=== PATIENT | female | born 1930 | race Caucasian/White ===

== ENCOUNTER 2018-11-22 13:07 | Inpatient (IN) | payer MEDICARE, OTHER ==
[~2018-11-22] VITALS: Ht 139.7 cm; Wt 38.6 kg
--- NOTE | 2018-11-22 13:30 | NUR ---
patient presented to the ER c/o fever, nausea and vomiting. Connected to the monitor and pulse ox. No facial grimace noted. kept comfortable, will continue to monitor accordingly.
[2018-11-22 13:43] LABS: BASOPHILS % (AUTO) 0.2 % (0.0-2.0); EOSINOPHILS % (AUTO) 0.1 % (0.0-6.0); HEMATOCRIT 30 % (33-45); HEMOGLOBIN 9.6 g/dL (11.5-14.8); LYMPHOCYTES # (AUTO) 0.8 /CMM (0.8-4.8); LYMPHOCYTES % (AUTO) 4.9 % (20.0-44.0); MEAN CORPUSCULAR HGB CONC 32 g/dl (31.0-36.0); MEAN CORPUSCULAR VOLUME 89 fL (82-100); MONOCYTES # (AUTO) 1.5 /CMM (0.1-1.30); MONOCYTES % (AUTO) 9.3 % (2.0-12.0); NEUTROPHILS # (AUTO) 13.9 /CMM (1.8-8.9); NEUTROPHILS % (AUTO) 85.5 % (43.0-81.0); PLATELET COUNT (AUTO) 272 /CMM (150-450); RED BLOOD CELL COUNT(AUTO) 3.37 MIL/uL (4.0-5.2); WHITE BLOOD COUNT (AUTO) 16.2 K/uL (4.3-11.0)
[2018-11-22 13:49] LABS: CALCIUM, SERUM 8.2 mg/dL (8.5-10.1); CARBON DIOXIDE 20 mmol/L (21-32); CHLORIDE 106 mmol/L (98-107); CREATININE 1.4 mg/dL (0.6-1.3); GLUCOSE 107 mg/dL (74-106); POTASSIUM 3.6 mmol/L (3.5-5.1); SODIUM SERUM 138 mmol/L (136-145); UREA NITROGEN, BLOOD 43 mg/dL (7-18)
[2018-11-22 13:56] LABS: ALANINE AMINOTRANSFERASE 12 U/L (12-78); ALBUMIN 2.1 g/dL (3.4-5.0); ALKALINE PHOSPHATASE 142 U/L (46-116); ASPARTATE AMINOTRANSFERASE 17 U/L (15-37); BILIRUBIN,DIRECT 0.1 mg/dL (0.0-0.2); BILIRUBIN,TOTAL 0.3 mg/dL (0.2-1.0); TOTAL PROTEIN, SERUM 6.4 g/dL (6.4-8.2)
[2018-11-22 14:09] LABS: APPEARANCE,URINE Cloudy (CLEAR); BILIRUBIN,URINE Negative (NEGATIVE); BLOOD, URINE Small Ery/uL (NEGATIVE); COLOR,URINE Yellow (YELLOW); KETONES,URINE Negative (NEGATIVE); LEUKOCYTE ESTERASE ,URINE Large (NEGATIVE); NITRITE, URINE Negative (NEGATIVE); PROTEIN,URINE 30 mg/dl (NEGATIVE); UGLUCOSE Negative (NEGATIVE); UROBILINOGEN,URINE 0.2 EU/dL (0.2)
[2018-11-22 14:23] LABS: SQUAMOUS EPITHELIAL CELL,UR Rare /HPF (None Seen); WBC,URINE TOO NUMEROUS TO COUN /HPF (0-3)
[2018-11-22 14:24] LABS: BACTERIA,URINE Few /HPF (None Seen)
[2018-11-22] MEDS ORDERED: ONDANSETRON HCL/PF 4 MG/2 ML VIAL IVP ONE (14:30)
[2018-11-22] MEDS ORDERED: IV NS 0.9% 1,000 ML BAG IV ONE (14:30)
[2018-11-22] MEDS ORDERED: PIPERACILLIN /TAZOBACTAM 3.375 G in IV D5W 50 ML IV ONE (14:30)
[2018-11-22] MEDS ORDERED: MINERAL OIL 133 ML (PYXIS) 1 EA ENEMA RC ONE (14:30)
[2018-11-22] MEDS ORDERED: IV NS 0.9% 500 ML BAG IV ONE (14:30)
[2018-11-22] MEDS ORDERED: ONDANSETRON HCL/PF 4 MG/2 ML VIAL ONE (14:34)
[2018-11-22] MEDS ORDERED: NA PHOS,M-B/NA PHOS,DI-BA 1 EA ENEMA RC ONE (14:34)
[2018-11-22] MEDS ORDERED: PANT40TA4 PO (15:19)
[2018-11-22] MEDS ORDERED: ONDA4TAB10 PO (15:19)
[2018-11-22] MEDS ORDERED: PRAM1.5T25 PO (15:22)
[2018-11-22] MEDS ORDERED: AMLO5TAB9 PO (15:22)
[2018-11-22] MEDS ORDERED: IV D5/0.45 NACL 1,000 ML IV PRN (17:02)
[2018-11-22] MEDS ORDERED: ONDANSETRON HCL/PF 4 MG/2 ML VIAL IVP PRN (17:30)
[2018-11-22] MEDS ORDERED: MAG HYDROX/AL HYDROX/SIMETH 30 ML UDC PO PRN (17:30)
[2018-11-22] MEDS ORDERED: HYDROCODONE/APAP 5/325MG 1 EACH TABLET PO PRN (17:30)
[2018-11-22] MEDS ORDERED: Z GUARD REMEDY 2 OZ OINT TP PRN (17:30)
[2018-11-22] MEDS ORDERED: ZOLPIDEM TARTRATE 5 MG TABLET PO PRN (17:30)
[2018-11-22] MEDS ORDERED: MAGNESIUM HYDROXIDE 30 ML UDC PO PRN (17:30)
--- NOTE | 2018-11-22 17:33 | NUR ---
report given to Christa ARMENTA for ok.
--- NOTE | 2018-11-22 17:51 | NUR ---
patient wheeled via gurney in no apparent distress noted.
[2018-11-22 18:00] VITALS: BP 99/51
[2018-11-22 19:03] VITALS: BP 93/51
--- NOTE | 2018-11-22 19:45 | NUR ---
MS/RN OPENING NOTES PT RECEIVED IN BED. ON ROOM AIR, BREATHING EVEN AND UNLABORED. IN NO ACUTE DISTRESS, NO SOB NOTED. PITCAIRN ISLANDER/HAITIAN SPEAKING. IV TO LAC PATENT AND INTACT. HENDRICKS IN PLACE AND DRAINING TO GRAVITY. BED IN LOW/LOCKED POSITION WITH CALL LIGHT IN REACH. SIDE RAILS UPX3 AND BED ALARM ON FOR SAFETY. WILL CONTINUE TO MONITOR
[2018-11-22 20:50] VITALS: BP 115/56
[2018-11-22] MEDS: CEFTRIAXONE 1 G in IV D5W 50 ML IV SCH (21:21)
[2018-11-22] MEDS: POLYETHYLENE GLYCOL 3350 17 GM POWD.PACK PO SCH (21:21)
[2018-11-22] MEDS: PRAMIPEXOLE DI-HCL 0.25 MG TABLET PO SCH (21:21)
[2018-11-22] MEDS: SENNOSIDES 8.6 MG TABLET PO SCH (21:21)
[2018-11-22] MEDS: DOCUSATE SODIUM 250 MG CAPSULE PO SCH (21:21)
[2018-11-22] MEDS: LACTULOSE 10 G/15 ML UDC (PYXIS) PO SCH (22:31)
--- NOTE | 2018-11-22 23:00 | NUR ---
MS/RN NOTES ALL DUE MEDS ADMINISTERED. PT APPEARS COMFORTABLE AT THIS TIME. WILL CONTINUE TO MONITOR
--- NOTE | 2018-11-23 02:25 | NUR ---
MS/RN NOTES PT ROUNDING PERFORMED. PT ASLEEP, IN NO ACUTE DISTRESS. BREATHING EVEN AND UNLABORED. WITH MONITOR
--- NOTE | 2018-11-23 03:24 | NUR ---
MS/RN NOTES PT RESTLESS, GETTING OUT OF BED TO USE BSC. IV PULLED OUT. PT STILL WITH NO BM YET. INSERTED NEW IV TO LFA #22 WITH GOOD BLOOD RETURN. ASSISTED PT BACK TO BED. BED IN LOW/LOCKED POSITION WITH CALL LIGHT IN REACH. SIDE RAILS UPX3 AND BED ALARM TURNED BACK ON FOR SAFETY.
[2018-11-23] MEDS: LACTULOSE 10 G/15 ML UDC (PYXIS) PO SCH ×4 (05:18→22:36)
--- NOTE | 2018-11-23 07:13 | NUR ---
MS/RN CLOSING NOTES PT RESTING COMFORTABLY IN BED. ON ROOM AIR, BREATHING EVEN AND UNLABORED. NO S/S OF SOB OR PAIN NOTED AT THIS TIME. IN NO ACUTE DISTRESS. HENDRICKS IN PLACE AND DRAINING TO GRAVITY. KEPT PT COMFORTABLE POSSIBLE. PT HAD MULTIPLE ATTEMPTS TO TRY TO HAVE A BM WITH NO SUCCESS. IV TO LFA PATENT AND INTACT RUNNING IVF ORDERED. ALL NEEDS MET. BED IN LOW/LOCKED POSITION WITH CALL LIGHT IN REACH. BILATERAL UPPER SIDE RAILS IN PLACE AND BED ALARM ON FOR SAFETY. WILL ENDORSE TO DAY SHIFT RN VANESA.
--- NOTE | 2018-11-23 07:25 | NUR ---
MS RN OPENING NOTE RECEIVED PATIENT IN BED. SLEEPING, EASILY AROUSED WITH VERBAL STIMULI. ORIENTED X3. ON ROOM AIR, TOLERATING WELL. IN NO APPARENT DISTRESS AT THIS TIME. RESPIRATIONS EVEN AND UNLABORED. PATIENT REPORTS MODERATE DISCOMFORT IN HER RECTAL AREA DUE TO HER CONDITION. UNABLE TO REDUCE DISCOMFORT AT THIS TIME PER MD'S INSTRUCTIONS. PATIENT IS ABLE TO COMMUNICATE NEEDS. USES DIAPER FOR ELIMINATION. ABDOMEN IS DISTENDED AND TENDER. NO BM FOR 6 DAYS. WILL CONTINUE TO MONITOR. LEFT FA 22G IVC WITH FLUIDS RUNNING AT 75ML/HR, PATENT INTACT. PATIENT KEPT CLEAN AND COMFORTABLE. ALL NEEDS ATTENDED, SAFETY MEASURES IN PLACE, BED IN LOW LOCKED POSITION, SIDE RAILS UP X3, BED ALARM ON, CALL LIGHT WITHIN EASY REACH. WILL CONTINUE TO MONITOR.
[2018-11-23 07:30] LABS: BASOPHILS % (AUTO) 0.2 % (0.0-2.0); EOSINOPHILS % (AUTO) 0.1 % (0.0-6.0); HEMATOCRIT 28 % (33-45); HEMOGLOBIN 9.3 g/dL (11.5-14.8); LYMPHOCYTES # (AUTO) 1.1 /CMM (0.8-4.8); LYMPHOCYTES % (AUTO) 8.3 % (20.0-44.0); MEAN CORPUSCULAR HGB CONC 33 g/dl (31.0-36.0); MEAN CORPUSCULAR VOLUME 89 fL (82-100); MONOCYTES # (AUTO) 1.6 /CMM (0.1-1.30); MONOCYTES % (AUTO) 12.4 % (2.0-12.0); NEUTROPHILS # (AUTO) 10.5 /CMM (1.8-8.9); PLATELET COUNT (AUTO) 290 /CMM (150-450); RED BLOOD CELL COUNT(AUTO) 3.19 MIL/uL (4.0-5.2); WHITE BLOOD COUNT (AUTO) 13.3 K/uL (4.3-11.0)
[2018-11-23 07:50] LABS: CALCIUM, SERUM 8.2 mg/dL (8.5-10.1); CARBON DIOXIDE 20 mmol/L (21-32); CHLORIDE 114 mmol/L (98-107); CREATININE 1.2 mg/dL (0.6-1.3); GLUCOSE 102 mg/dL (74-106); MAGNESIUM 1.9 mg/dL (1.8-2.4); PHOSPHORUS 4.1 mg/dL (2.5-4.9); POTASSIUM 3.2 mmol/L (3.5-5.1); SODIUM SERUM 146 mmol/L (136-145); UREA NITROGEN, BLOOD 33 mg/dL (7-18)
[2018-11-23 07:55] LABS: CHOLESTEROL 97 mg/dL (<200); HDL CHOLESTEROL 11 mg/dL (40-60); LDL 48 mg/dL (0-99); TRIGLYCERIDES 148 mg/dL (30-150)
--- NOTE | 2018-11-23 07:56 | NUR ---
WOUND CARE CONSULT WOUND CARE RECEIVED CONSULT FOR RECTAL PROLAPSE. WOUND CARE WILL DEFER CONSULT TO MD/SURGICAL TEAMS AT THIS TIME. WILL SEE PRN.
[2018-11-23 08:00] VITALS: BP 137/64
[2018-11-23] MEDS: DOCUSATE SODIUM 250 MG CAPSULE PO SCH ×2 (08:31→17:22)
[2018-11-23] MEDS: AMLODIPINE BESYLATE 5 MG TABLET PO SCH (08:32)
[2018-11-23] MEDS: PANTOPRAZOLE 40 MG TABLET.DR PO SCH (08:32)
[2018-11-23] MEDS: PRAMIPEXOLE DI-HCL 0.25 MG TABLET PO SCH ×3 (08:32→17:22)
--- NOTE | 2018-11-23 11:00 | NUR ---
PATIENT PRESENTS WITH NON-PRODUCTIVE COUGH. LUNG SOUND ARE CLEAR. ALSO REPORTS PAIN AND DISCOMFORT IN THE RECTAL AREA. REPORTED TO DR. LANE. ORDERS RECEIVED FOR TREATMENT OF PATIENT'S CURRENT SYMPTOMS. WILL CARRY OUT AND CONTINUE TO MONITOR.
[2018-11-23] MEDS ORDERED: POTASSIUM CHLORIDE 20 MEQ TAB.PRT.SR PO SCH (11:30)
[2018-11-23] MEDS ORDERED: Potassium Chloride 40 MEQ in IV D5W 1,000 ML IV PRN (12:00)
[2018-11-23] MEDS ORDERED: ALBUTEROL FS 2.5 MG/3 ML VIAL.NEB NEB PRN (12:00)
[2018-11-23] MEDS: POTASSIUM CHLORIDE 20 MEQ POWDER PACKET PO SCH ×2 (12:07→14:11)
[2018-11-23] MEDS: LIDOCAINE 5% (PATCH) 1 EA PATCH TP SCH (12:07)
[2018-11-23] MEDS: GUAIFENESIN/D-METHORPHAN HB 5 ML UDC PO PRN (12:07)
[2018-11-23] MEDS: ACETAMINOPHEN 325 MG TABLET PO PRN ×2 (12:07→19:34)
[2018-11-23 16:00] VITALS: BP 137/64
--- NOTE | 2018-11-23 18:19 | NUR ---
MS RN CLOSING NOTE PATIENT IN BED. SLEEPING, EASILY AROUSED WITH VERBAL STIMULI. ORIENTED X3. ON ROOM AIR, TOLERATING WELL. IN NO APPARENT DISTRESS AT THIS TIME. RESPIRATIONS EVEN AND UNLABORED. DENIES PAIN AND SOB. PATIENT IS ABLE TO COMMUNICATE NEEDS. USES DIAPER FOR ELIMINATION. PATIENT HAD 3 BMS DURING THE SHIFT. LEFT FA 22G IVC WITH FLUIDS RUNNING AT 75ML/HR, PATENT INTACT. PATIENT KEPT CLEAN AND COMFORTABLE. ALL NEEDS ATTENDED, ORDERS RENDERED. SAFETY MEASURES IN PLACE, BED IN LOW LOCKED POSITION, SIDE RAILS UP X3, BED ALARM ON, CALL LIGHT WITHIN EASY REACH. WILL ENDORSE TO PM NURSE FOR VANESA.
--- NOTE | 2018-11-23 19:40 | NUR ---
RN MS OPENING NOTES RECEIVED PT IN BED, AWAKE ALERT ORIENTED X3 TUNISIAN SPEAKING, FAMILY AT BESIDE. BREATHING EVEN AND UNLABORED ON ROOM AIR, NO COUGHING AT THE MOMENT, COMPLAINING OF PAIN 10/10 LOWER BACK, WILL ADMINISTER TYLENOL PRESCRIBED. IV ACCESS ON THE L FA G 22 WITH D5 NS WITH POTASSIUM. BED IN LOWEST LOCKED POSITION, CALL LIGHT WITHIN REACH AT ALL TIMES, WILL CONTINUE TO MONITOR.
[2018-11-23] MEDS: CEFTRIAXONE 1 G in IV D5W 50 ML IV SCH (19:44)
[2018-11-23 20:00] VITALS: BP 169/79
[2018-11-23] MEDS: POLYETHYLENE GLYCOL 3350 17 GM POWD.PACK PO SCH (22:19)
[2018-11-23] MEDS: SENNOSIDES 8.6 MG TABLET PO SCH (22:20)
[2018-11-24] MEDS: LACTULOSE 10 G/15 ML UDC (PYXIS) PO SCH ×2 (04:19→09:45)
--- NOTE | 2018-11-24 06:24 | NUR ---
RN MS CLOSING NOTES PT REMAINS IN BED, AWAKE ALERT ORIENTED X3 [place] SPEAKING. BREATHING EVEN AND UNLABORED ON ROOM AIR, NO COUGHING AT THE MOMENT, IN NO APPARENT PAIN OR DISCOMFORT AT THIS TIME. IV ACCESS ON THE L FA G 22 WITH D5 NS WITH POTASSIUM. BED IN LOWEST LOCKED POSITION, CALL LIGHT WITHIN REACH AT ALL TIMES, WILL ENDORSE TO DAY NURSE FOR VANESA
[2018-11-24 06:55] LABS: BASOPHILS % (AUTO) 0.4 % (0.0-2.0); EOSINOPHILS % (AUTO) 0.6 % (0.0-6.0); HEMATOCRIT 30 % (33-45); HEMOGLOBIN 9.6 g/dL (11.5-14.8); LYMPHOCYTES # (AUTO) 1.3 /CMM (0.8-4.8); LYMPHOCYTES % (AUTO) 12.9 % (20.0-44.0); MEAN CORPUSCULAR HGB CONC 32 g/dl (31.0-36.0); MEAN CORPUSCULAR VOLUME 90 fL (82-100); MONOCYTES # (AUTO) 1.2 /CMM (0.1-1.30); MONOCYTES % (AUTO) 12.1 % (2.0-12.0); NEUTROPHILS # (AUTO) 7.2 /CMM (1.8-8.9); PLATELET COUNT (AUTO) 313 /CMM (150-450); RED BLOOD CELL COUNT(AUTO) 3.29 MIL/uL (4.0-5.2); WHITE BLOOD COUNT (AUTO) 9.7 K/uL (4.3-11.0)
--- NOTE | 2018-11-24 07:15 | NUR ---
OPENING NOTE RN AM BEDSIDE REPORT RECIEVED FROM PM RN. PATIENT SEEN IN BED WITH IV INFUSING , NO S/S OF COMPLICATIONS AT IV SITE. PATIENT RESTING IN BED LOW POSITION LOCKED, CALL LIGHT IN REACH. HUNGARIAN SPEAKING, PATIENT DOES NOT APPEAR TO BE IN ANY DISTRESS.
[2018-11-24 07:37] LABS: CALCIUM, SERUM 8.2 mg/dL (8.5-10.1); CARBON DIOXIDE 16 mmol/L (21-32); CHLORIDE 112 mmol/L (98-107); GLUCOSE 92 mg/dL (74-106); MAGNESIUM 1.8 mg/dL (1.8-2.4); POTASSIUM 3.6 mmol/L (3.5-5.1); SODIUM SERUM 142 mmol/L (136-145); UREA NITROGEN, BLOOD 18 mg/dL (7-18)
[2018-11-24 08:43] VITALS: BP 139/73
[2018-11-24] MEDS: PANTOPRAZOLE 40 MG TABLET.DR PO SCH (09:43)
[2018-11-24] MEDS: DOCUSATE SODIUM 250 MG CAPSULE PO SCH ×2 (09:43→18:03)
[2018-11-24] MEDS: PRAMIPEXOLE DI-HCL 0.25 MG TABLET PO SCH ×3 (09:43→18:03)
[2018-11-24] MEDS: AMLODIPINE BESYLATE 5 MG TABLET PO SCH (09:45)
[2018-11-24] MEDS: GUAIFENESIN/D-METHORPHAN HB 5 ML UDC PO PRN (09:58)
[2018-11-24] MEDS ORDERED: Magnesium 1GM/D5W 100ML PREMIX 100 ML IV SCH (11:00)
[2018-11-24] MEDS: LIDOCAINE 5% (PATCH) 1 EA PATCH TP SCH (11:21)
[2018-11-24 16:14] VITALS: BP 113/58
[2018-11-24] MEDS: ENSURE ENLIVE 237 ML LIQUID (VANILLA) PO SCH (18:22)
--- NOTE | 2018-11-24 18:47 | NUR ---
CLOSING NOTE RN DAY PATIENT SEEN IN BED WITH IV HEPLOCKED , NO S/S OF COMPLICATIONS AT IV SITE. PATIENT RESTING IN BED LOW POSITION LOCKED, CALL LIGHT IN REACH. LEBANESE SPEAKING, PATIENT DOES NOT APPEAR TO BE IN ANY DISTRESS. FINISHED EATING OVER HALF OF HER DINNER. ENCOURAGED TO DRINK HER ENSURE. BT PATIENT SHAKES HER HEAD, WITH LITTLE INTEREST. LEFT ACCESSIBLE TO HER ALONG WITH HER WATER. CALL LIGTH IN REACH BED DOWN LOCKED SRX3.
--- NOTE | 2018-11-24 19:20 | NUR ---
RN OPEN NOTES RECEIVED PATIENT AWAKE IN BED WITH FAMILY AT BEDSIDE. A/O X3, BULGARIAN/BRAZILIAN SPEAKING. NO SIGNS OF DISTRESS OR DISCOMFORT BREATHING EVEN AND UNLABORED. IV ACCESS IN RFA INTACT NO SIGNS OF REDNESS OR INFILTRATION. HAS F/C INTACT WITH CLEAR YELLOW FLUID DRAINING. BED IN LOW LOCKED POSITION WITH SIDE RAILS X3. BED ALARM ON. CALL LIGHT WITHIN REACH. WILL CONTINUE TO MONITOR.
[2018-11-24 20:00] VITALS: BP 147/72
[2018-11-24] MEDS: CEFTRIAXONE 1 G in IV D5W 50 ML IV SCH (20:26)
[2018-11-24] MEDS: POLYETHYLENE GLYCOL 3350 17 GM POWD.PACK PO SCH (22:47)
[2018-11-24] MEDS: SENNOSIDES 8.6 MG TABLET PO SCH (22:47)
--- NOTE | 2018-11-25 06:49 | NUR ---
RN CLOSING NOTES PATIENT RESTING IN BED, EASILY AROUSABLE. A/O X3, INDONESIAN/ZAMBIAN SPEAKING. NO SIGNS OF DISTRESS OR DISCOMFORT BREATHING EVEN AND UNLABORED. IV ACCESS IN RFA INTACT NO SIGNS OF REDNESS OR INFILTRATION. HAS F/C INTACT WITH CLEAR YELLOW FLUID DRAINING. ALL NEEDS MET. NO SIGNIFICANT CHANGES. REPOSITIONED Q2H AND PRN. BED IN LOW LOCKED POSITION WITH SIDE RAILS X3. BED ALARM ON. CALL LIGHT WITHIN REACH. WILL ENDORSE TO AM SHIFT FOR VANESA.
--- NOTE | 2018-11-25 07:52 | NUR ---
M/S RN OPENING NOTES RECEIVED PATIENT A/O X 4 AND ABLE TO MAKE NEEDS KNOWN, [place] AND BURUNDIAN SPEAKING ONLY. RESPIRATION EVEN AND NON LABORED WITH NO ACUTE RESPIRATORY DISTRESS. ABDOMEN SOFT AND NON DISTENDED WITH ACTIVE SOUNDS TO ALL QUADRANTS. PATIENT DENIES PAIN AND DISCOMFORT UPON ASSESSMENT. SKIN WARM TO TOUCH. IV SITE AT RIGHT ANTECUBITAL GAUGE 22, PATENT IN FLUSHING, SITE WITH NO S/SX OF INFECTION OR INFILTRATION. HENDRICKS CATHETER PRESENT AND IN PLACE. ALL CARE CONCERNS ATTENDED. PLACED CALL LIGHT WITHIN REACH TO ENSURE SAFETY. WILL CONTINUE TO EVALUATE CARE.
[2018-11-25 07:56] LABS: BASOPHILS % (AUTO) 0.3 % (0.0-2.0); EOSINOPHILS % (AUTO) 0.9 % (0.0-6.0); HEMATOCRIT 27 % (33-45); HEMOGLOBIN 9.1 g/dL (11.5-14.8); LYMPHOCYTES # (AUTO) 1.4 /CMM (0.8-4.8); LYMPHOCYTES % (AUTO) 16.6 % (20.0-44.0); MEAN CORPUSCULAR HGB CONC 34 g/dl (31.0-36.0); MEAN CORPUSCULAR VOLUME 88 fL (82-100); MONOCYTES # (AUTO) 1.1 /CMM (0.1-1.30); MONOCYTES % (AUTO) 12.7 % (2.0-12.0); NEUTROPHILS # (AUTO) 5.9 /CMM (1.8-8.9); NEUTROPHILS % (AUTO) 69.5 % (43.0-81.0); PLATELET COUNT (AUTO) 354 /CMM (150-450); RED BLOOD CELL COUNT(AUTO) 3.08 MIL/uL (4.0-5.2); WHITE BLOOD COUNT (AUTO) 8.5 K/uL (4.3-11.0)
[2018-11-25 08:00] VITALS: BP 160/73
[2018-11-25 08:19] LABS: ALANINE AMINOTRANSFERASE 11 U/L (12-78); ALBUMIN 1.6 g/dL (3.4-5.0); ALKALINE PHOSPHATASE 105 U/L (46-116); ASPARTATE AMINOTRANSFERASE 18 U/L (15-37); BILIRUBIN,TOTAL 0.3 mg/dL (0.2-1.0); CALCIUM, SERUM 7.9 mg/dL (8.5-10.1); CARBON DIOXIDE 23 mmol/L (21-32); CHLORIDE 110 mmol/L (98-107); CREATININE 0.8 mg/dL (0.6-1.3); GLUCOSE 89 mg/dL (74-106); MAGNESIUM 1.8 mg/dL (1.8-2.4); PHOSPHORUS 2.9 mg/dL (2.5-4.9); POTASSIUM 3.6 mmol/L (3.5-5.1); SODIUM SERUM 142 mmol/L (136-145); TOTAL PROTEIN, SERUM 5.7 g/dL (6.4-8.2); UREA NITROGEN, BLOOD 15 mg/dL (7-18)
[2018-11-25 08:28] VITALS: BP 160/73
[2018-11-25] MEDS: PRAMIPEXOLE DI-HCL 0.25 MG TABLET PO SCH ×2 (08:28→12:02)
[2018-11-25] MEDS: DOCUSATE SODIUM 250 MG CAPSULE PO SCH (08:28)
[2018-11-25] MEDS: AMLODIPINE BESYLATE 5 MG TABLET PO SCH (08:28)
[2018-11-25] MEDS: PANTOPRAZOLE 40 MG TABLET.DR PO SCH (08:28)
[2018-11-25] MEDS: ENSURE ENLIVE 237 ML LIQUID (VANILLA) PO SCH (09:13)
[2018-11-25] MEDS ORDERED: LEVO750T21 PO (11:35)
[2018-11-25] MEDS: LIDOCAINE 5% (PATCH) 1 EA PATCH TP SCH (11:40)
--- NOTE | 2018-11-25 11:40 | NUR ---
M/S RN HENDRICKS CATHETER REMOVED PER ORDER, URINE OUTPUT TOTAL 750 ML WITH CLEAR AND LIGHT YELLOW URINE. PATIENT PLACED ON DIAPER FOR URINE ELIMINATION. WILL CONTINUE TO MONITOR.
--- NOTE | 2018-11-25 14:37 | NUR ---
M/S RECONNAISSANCE CREWMEMBER NOTES PATIENT DISCHARGED ACCOMPANIED BY FAMILY MEMBER ISAAC AND BIANCA WHEELED VIA WHEELCHAIR TO A PRIVATE CAR. PATIENT A/O X 3, HUNGARIAN/UKRAINIAN SPEAKING FLUENTLY. RESPIRATION EVEN AND NON LABORED WITH NO ACUTE RESPIRATORY DISTRESS, NO OXYGEN NEEDED. ABDOMEN SOFT WITH NO PAIN UPON PALPATION, HENDRICKS CATHETER REMOVED, PATIENT URINATED TOO, BM PRESENT WITH BROWN SOFT STOOL X1. ACTIVE BOWEL SOUNDS ASSESSED. DENIES PAIN AND DISCOMFORT UPON ASSESSMENT. SKIN INTACT AND DRY WITH NO NEW OPEN SKIN BREAKDOWN, RECTAL PROLAPSE PRESENT STILL SINCE ADMISSION. EXIT CARE PROVIDED WITH FAMILY, ISAAC AND BIANCA WITH ALL CONCERNS ADDRESSED. CALLED [employer] FOR HOME HEALTH PREFERENCES OF THE FAMILY AND WILL COORDINATE WITH [facility]. IV ON RIGHT AC REMOVED WITH NO S/SX OF INFECTION. PATIENT LEFT VIA PRIVATE CARE SAFELY.
== END 2018-11-25 14:40 | disposition home health service (06) | DRG 689 ==
LOC: ER 13:17 → MED 17:35
PROVIDERS: ADMIT Internal Medicine; ATTEND Internal Medicine
DX: N39.0 Urinary tract infection, site not specified (principal); N17.0 Acute kidney failure with tubular necrosis; E44.0 Moderate protein-calorie malnutrition; K43.9 Ventral hernia without obstruction or gangrene; K21.9 Gastro-esophageal reflux disease without esophagitis; B96.89 Other specified bacterial agents as the cause of diseases classified elsewhere; K80.20 Calculus of gallbladder without cholecystitis without obstruction; F32.9 Major depressive disorder, single episode, unspecified; I10 Essential (primary) hypertension; K44.9 Diaphragmatic hernia without obstruction or gangrene; N13.30 Unspecified hydronephrosis; K59.09 Other constipation; G20 Parkinson's disease; E78.5 Hyperlipidemia, unspecified; D64.9 Anemia, unspecified; Z51.5 Encounter for palliative care; Z66 Do not resuscitate; Z90.710 Acquired absence of both cervix and uterus; K62.3 Rectal prolapse
CPT/HCPCS: 36415; 71045-TC; 76770-TC; 80048-TC; 80053-TC; 80061-TC; 80076-TC; 81000-TC; 83605-TC; 83735-TC; 84100-TC; 84484-TC; 85025-TC; 85730-TC; 87040-TC; 87081-TC; 87086-TC; 87186-TC; G0378; J0696; J2405; J2543; J3475; J3480; J3490; J7030; J7040; J7060; J7070